=== PATIENT | female | born 1970 | race Caucasian/White ===

== ENCOUNTER 2018-10-04 00:09 | Observation (INO) | payer SELFPAY ==
[2018-10-04 00:46] LABS: #Basophils 0.1 thou/uL (0.0-0.2); #Eosinphils 0.1 thou/uL (0.0-0.7); #Lymphocytes 2.2 thou/uL (1.20-3.40); #Monocytes 0.7 thou/uL (0.11-0.59); %Basophils 1.2 % (0.0-1.0); %Eosinophils 1.3 % (0.0-10.0); %Monocytes 6.6 % (0.0-10.0); %Neutrophils 68.9 % (42.0-75.0); Hemoglobin 7.2 g/dL (12.0-16.0); Mean Corpuscular HGB CONC 34.5 g/dL (32.0-36.0); Mean Corpuscular Hemoglobin 29.1 pg (27.0-31.0); Mean Corpuscular Volume 84.5 fL (78.0-98.0); Mean Platelet Volume 5.6 fL (7.4-10.4); Platelet Count 244 thou/uL (130-400); RBC Distribution Width 13.2 % (11.5-14.5); Red Blood Cell (RBC) Count 2.47 mill/uL (4.20-5.40); White Blood Cell (WBC) Count 10.1 thou/uL (4.8-10.8)
[2018-10-04 01:11] LABS: ALT (SGPT) 25 U/L (8-55); AST (SGOT) 22 U/L (5-34); Albumin 3.7 g/dL (3.5-5.0); Alkaline Phosphatase 110 U/L (40-150); Anion Gap 12 mmol/L (10-20); BUN (Urea Nitrogen) 23 mg/dL (7.0-18.7); Bilirubin, Total 0.4 mg/dL (0.2-1.2); Calc. Creatinine Clearance 0 mL/min (70-130); Calcium 8.1 mg/dL (7.8-10.44); Carbon Dioxide 21 mmol/L (22-29); Chloride 109 mmol/L (98-107); Estimated GFR-MDRD 76; Globulin 2.5 g/dL (2.4-3.5); Glucose 137 mg/dL (70-105); Lipase 27 U/L (8-78); Protein, Total 6.2 g/dL (6.0-8.3); Sodium 138 mmol/L (136-145)
[2018-10-04] MEDS ORDERED: Pantoprazole 40 MG VIAL ONE (01:41)
[2018-10-04 01:46] LABS: Reticulocyte Count 5.9 % (0.5-1.5)
[2018-10-04 02:05] LABS: Iron 176 ug/dL (50-170); Iron Binding Capacity, Total 283 mcg/dL (265-497)
[2018-10-04 02:10] LABS: Bilirubin Negative (Negative); Blood, Urine Negative (Negative); Clarity CLEAR (Clear); Glucose, Urine (Dipstick) Negative (Negative); Leukocyte Small (Negative); Nitrite Negative (Negative); Protein, Urine (Dipstick) Negative (Neg-Trace); Specific Gravity, Urine 1.013 (1.002-1.036); Urobilinogen 0.2 mg/dL (0.2-1.0); pH, Urine 5.5 (5.0-9.0)
[2018-10-04 02:11] LABS: Pregnancy Test - Urine (BHCG) Negative (Negative); Pregu Control Background? CLEAR/WHITE (CLR/WHITE); Pregu Control Bar Appear? YES (CONTROL BAR); Specific Gravity 1.013 (1.002-1.036)
[2018-10-04 02:12] LABS: Bacteria/HPF None Seen HPF (None Seen); Hyaline Casts/LPF 0-3 HYALINE CAST LPF (0-3 Hyaline); Pathc Cast-AUWi Flag 0.43 (0-2.49); Squamous Epithelial 0-3 HPF (0-3)
[2018-10-04] MEDS ORDERED: diphenhydrAMINE 25 MG CAP PO PRN (02:46)
[2018-10-04] MEDS ORDERED: Acetaminophen 325 MG TAB PO PRN (02:47)
[2018-10-04] MEDS ORDERED: hydrALAZINE 20 MG/ML VIAL SLOW IVP PRN (02:49)
[2018-10-04] MEDS ORDERED: Ondansetron PF 4 MG/2 ML Vial SLOW IVP PRN (02:49)
[2018-10-04] MEDS ORDERED: HYDROcodone/Acetaminophen 5/325 mg Tablet PO PRN ×2 (02:52)
[2018-10-04] MEDS ORDERED: Furosemide 20 MG/2 ML VIAL SLOW IVP SCH (03:00)
[2018-10-04 03:08] VITALS: BMI 27.4
--- NOTE | 2018-10-04 03:47 | HP ---
PRIMARY CARE PHYSICIAN: Gloria Baez PA-C CHIEF COMPLAINT: Vomiting of blood and passing out. HISTORY OF PRESENT ILLNESS: The patient is a 48-year-old female with past medical history of Raynaud's phenomenon, hypertension, hypothyroidism and high cholesterol, who presented to the emergency department after having hematemesis x2 and passing out. The patient reported that she has Raynaud's phenomenon and she uses muscle relaxants, cyclobenzaprine along with Motrin 3 times per day. The patient has been doing this thing for a long time. The patient also reports now taking amlodipine and she is also taking levothyroxine, but she is unable to remember the dosages of her medication. The patient denies any abdominal pain or nausea at this point. The patient denies any chest pain or shortness of breath. PAST MEDICAL HISTORY: 1. Raynaud's phenomenon. 2. Hypothyroidism. 3. High cholesterol. PAST SURGICAL HISTORY: Denies any surgeries in the past. Family Hx: Mother heart problems HOME MEDICATIONS: 1. Levothyroxine. 2. Atorvastatin. 3. Flexeril. 4. Amlodipine. SOCIAL HISTORY: Denies any smoking, alcohol, or illicit drugs. Allergies: Bactrim REVIEW OF SYSTEMS: CONSTITUTIONAL: Negative for fever. EYES: Negative for visual changes. ENT: Negative for any problem with her ears, nose, or throat. CARDIOVASCULAR: Denies any chest pain. RESPIRATIONS: Denies any shortness of breath. GI: Reports hematemesis. Denies diarrhea. GENITOURINARY: Negative for dysuria. MUSCULOSKELETAL: Denies any lower extremity edema. NEUROLOGIC: Neurologically-induced passing out, otherwise denies any loss of consciousness. PSYCHIATRIC: Denies any mood disorders. PHYSICAL EXAMINATION: VITAL SIGNS: Blood pressure 132/66, heart rate 106, respiratory rate 16, O2 sat 100% on room air. GENERAL: Alert and oriented. HEAD: Atraumatic. EYES: Reactive to light. ENT: Normal examination of the mouth. NECK: No lymphadenopathy noted. RESPIRATIONS: Respiratory rate clear bilaterally. No rales, wheezes, or gallops. CARDIOVASCULAR: Regular rate and rhythm. No murmur, rubs, or gallops. ABDOMEN: Bowel sounds positive, nontender. No distention. EXTREMITIES: No edema noted. NEUROLOGIC: Alert and oriented. SKIN: No rashes noted, but appears to be pale. PSYCHIATRIC: Alert and oriented at this point. LABORATORY DATA: Labs reviewed. CBC significant for hemoglobin of 7.2. BNP nonsignificant. TSH 13.22. EKG reviewed, significant for QTc 507. Chest x-ray report is pending at this point. ASSESSMENT AND PLAN: 1. Upper gastrointestinal bleed, suspect gastric ulcer versus peptic ulcer disease given the use of NSAIDs. The patient's hemoglobin is 7.2 on admission, baseline unknown at this point. Given her symptoms, we will transfuse 2 units of blood, PRBC. Type and screen done in the ER. GI to be consulted in the morning. Two large-bore IV, Protonix IV b.i.d., remain n.p.o. except medication at this point , avoid NSAID at this point. The patient consulted to avoid NSAIDs. 2. Acute blood loss anemia, likely from upper gastrointestinal bleed. Plan as mentioned above. 3. Hypothyroidism, seems to be uncontrolled. Unable to adjust dosages at this point of levothyroxine as home dosage is not known. Once home dosage is known, then adjustment of medication will be done. 4. Raynaud's phenomenon, will be holding her amlodipine. 5. Muscular spasm. We will restart her home medication once dosage is known. 6. Hyperlipidemia. We will start atorvastatin once home dosage is known. 7. Deep venous thrombosis prophylaxis, SCD only due to acute gastrointestinal bleeding. 8. Code status, full code. 9. Medical power of trademark attorney, patient does not have anybody assigned but does have a sister, who can make decision for her if she is not able to. Job ID: [id number] [facility]
[2018-10-04 05:24] LABS: Free T4 (Free Thyroxine) 1.17 ng/dL (0.70-1.48)
[2018-10-04 07:43] LABS: #Lymphocytes 1.1 thou/uL (1.20-3.40); #Monocytes 0.4 thou/uL (0.11-0.59); #Neutrophils 6.9 thou/uL (1.40-6.50); %Basophils 0.4 % (0.0-1.0); %Eosinophils 0.4 % (0.0-10.0); %Lymphocytes 12.6 % (21.0-51.0); %Monocytes 4.3 % (0.0-10.0); %Neutrophils 82.3 % (42.0-75.0); Hemoglobin 9.3 g/dL (12.0-16.0); Mean Corpuscular HGB CONC 33.9 g/dL (32.0-36.0); Mean Corpuscular Hemoglobin 30.5 pg (27.0-31.0); Mean Corpuscular Volume 89.9 fL (78.0-98.0); Mean Platelet Volume 5.5 fL (7.4-10.4); Platelet Count 183 thou/uL (130-400); RBC Distribution Width 14.5 % (11.5-14.5); Red Blood Cell (RBC) Count 3.04 mill/uL (4.20-5.40); White Blood Cell (WBC) Count 8.3 thou/uL (4.8-10.8)
--- NOTE | 2018-10-04 07:44 | RAD ---
CHEST 1 VIEW: Date: 10/04/18 HISTORY: Dyspnea. COMPARISON: Radiograph dated 01/17/08. FINDINGS: There is some scarring in the right upper lobe. Lungs are otherwise clear. No pneumothorax. No effusi on. No acute osseous abnormality. Cardiac silhouette and mediastinal contours are similar. IMPRESSION: No acute intrathoracic abnormality. POS: [facility]
[2018-10-04 08:03] LABS: Anion Gap 12 mmol/L (10-20); BUN (Urea Nitrogen) 16 mg/dL (7.0-18.7); Calc. Creatinine Clearance 97 mL/min (70-130); Calcium 8.1 mg/dL (7.8-10.44); Carbon Dioxide 20 mmol/L (22-29); Chloride 110 mmol/L (98-107); Estimated GFR-MDRD 83; Glucose 126 mg/dL (70-105); Potassium 3.9 mmol/L (3.5-5.1); Sodium 138 mmol/L (136-145)
[2018-10-04 08:05] LABS: Troponin I Less than 0.010 ng/mL (< 0.028)
[2018-10-04] MEDS: Amlodipine 5 MG TAB PO SCH (09:00)
[2018-10-04] MEDS: Sodium Chloride 0.9% (PF) 10 ML VIAL FS SCH ×2 (09:00→20:50)
[2018-10-04] MEDS: Pantoprazole 40 MG VIAL IVP SCH ×2 (09:00→20:50)
[2018-10-04 11:05] LABS: Troponin I Less than 0.010 ng/mL (< 0.028)
[2018-10-04 13:12] LABS: #Eosinphils 0.1 thou/uL (0.0-0.7); #Lymphocytes 1.4 thou/uL (1.20-3.40); #Monocytes 0.4 thou/uL (0.11-0.59); #Neutrophils 6.9 thou/uL (1.40-6.50); %Basophils 0.1 % (0.0-1.0); %Eosinophils 0.6 % (0.0-10.0); %Lymphocytes 15.5 % (21.0-51.0); %Neutrophils 78.7 % (42.0-75.0); Hemoglobin 9.9 g/dL (12.0-16.0); Mean Corpuscular HGB CONC 34.9 g/dL (32.0-36.0); Mean Corpuscular Hemoglobin 30.9 pg (27.0-31.0); Mean Corpuscular Volume 88.4 fL (78.0-98.0); Mean Platelet Volume 5.6 fL (7.4-10.4); Platelet Count 199 thou/uL (130-400); RBC Distribution Width 14.4 % (11.5-14.5); White Blood Cell (WBC) Count 8.7 thou/uL (4.8-10.8)
--- NOTE | 2018-10-04 15:03 | PDOC.EVN ---
Event Note - Event Note Event Note: Pt seen and examined. chart reviewed no more hemetemesis. 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 Cont IVF,NPO for possible endoscopy today NSAID abuser.educated HD stable H/H stable post transfusion.Monitor
[2018-10-04 18:21] LABS: #Eosinphils 0.1 thou/uL (0.0-0.7); #Lymphocytes 1.6 thou/uL (1.20-3.40); #Monocytes 0.5 thou/uL (0.11-0.59); #Neutrophils 6.4 thou/uL (1.40-6.50); %Basophils 0.5 % (0.0-1.0); %Eosinophils 0.7 % (0.0-10.0); %Lymphocytes 18.7 % (21.0-51.0); Mean Corpuscular HGB CONC 35.1 g/dL (32.0-36.0); Mean Corpuscular Volume 88.2 fL (78.0-98.0); Mean Platelet Volume 5.4 fL (7.4-10.4); Platelet Count 201 thou/uL (130-400); RBC Distribution Width 14.5 % (11.5-14.5); Red Blood Cell (RBC) Count 2.91 mill/uL (4.20-5.40); White Blood Cell (WBC) Count 8.6 thou/uL (4.8-10.8)
--- NOTE | 2018-10-04 23:57 | CON ---
DATE OF CONSULTATION: 10/04/2018 CHIEF COMPLAINT: Vomited dark material and anemia. HISTORY OF PRESENT ILLNESS: Ms. Mosqueda is a 48-year-old woman, who vomited dark, possibly bloody material yesterday. She passed out with that occurrence and was helped down to the bed by her sister. She had no nausea or vomiting otherwise. No abdominal pain with that. She had a brown bowel movement yesterday. No bowel movements today. She may get some heartburn, maybe once per month. She has been taking Motrin 1 tablet three times a day for leg spasms. She has had no prior history of bleeding or ulcer. PAST MEDICAL HISTORY: Raynaud phenomenon, hyperlipidemia, and hypothyroidism. PAST SURGICAL HISTORY: Negative. FAMILY HISTORY: Negative for GI malignancies. SOCIAL HISTORY: No alcohol, tobacco or drugs. ALLERGIES: BACTRIM. MEDICATIONS: Prior to admission, 1. Levothyroxine. 2. Atorvastatin. 3. Flexeril. 4. Amlodipine. 5. Ibuprofen as stated above. REVIEW OF SYSTEMS: Negative x10 systems reviewed except as stated in the history of present illness. PHYSICAL EXAMINATION: VITAL SIGNS: Temperature 98.4, pulse 108, and blood pressure 126/69. GENERAL: She is in no acute distress. Alert and oriented x3. HEENT: Eyes have no scleral icterus. Oropharynx is clear without lesions. No cervical or supraclavicular lymphadenopathy. LUNGS: Clear to auscultation bilaterally. HEART: Tachycardic S1 and S2 without murmur. ABDOMEN: Soft, nontender, and nondistended. Bowel sounds are present. EXTREMITIES: No lower extremity edema. LABORATORY DATA: Creatinine 0.75. Iron 176, TIBC 283, and ferritin 47.5. AST 22, alk phos 110, ALT 25, albumin 3.7, and lipase 27. White blood cell count 8.7. Hemoglobin is 9.9 after 2 units transfusion. Prior to the transfusion, her hemoglobin was . Platelets 199. IMPRESSION: 1. Hematemesis. 2. Anemia of acute blood loss. She may have some component of more chronic blood loss as well given that she only had two episodes of vomiting dark material and she has no melena or evidence of blood in the stool. She does take NSAIDs regularly and is at risk for peptic ulcer. RECOMMENDATIONS: 1. Proton pump inhibitor. 2. EGD tomorrow morning. Job ID: [id number]
[2018-10-05 01:02] LABS: #Eosinphils 0.1 thou/uL (0.0-0.7); #Monocytes 0.6 thou/uL (0.11-0.59); #Neutrophils 5.2 thou/uL (1.40-6.50); %Basophils 0.4 % (0.0-1.0); %Eosinophils 0.9 % (0.0-10.0); %Lymphocytes 25.5 % (21.0-51.0); %Monocytes 7.9 % (0.0-10.0); %Neutrophils 65.4 % (42.0-75.0); Hemoglobin 8.8 g/dL (12.0-16.0); Mean Corpuscular HGB CONC 34.6 g/dL (32.0-36.0); Mean Corpuscular Hemoglobin 30.8 pg (27.0-31.0); Mean Platelet Volume 5.4 fL (7.4-10.4); Platelet Count 195 thou/uL (130-400); RBC Distribution Width 14.7 % (11.5-14.5); Red Blood Cell (RBC) Count 2.85 mill/uL (4.20-5.40)
[2018-10-05 05:32] LABS: #Basophils 0.1 thou/uL (0.0-0.2); #Eosinphils 0.1 thou/uL (0.0-0.7); #Lymphocytes 1.7 thou/uL (1.20-3.40); #Monocytes 0.5 thou/uL (0.11-0.59); %Eosinophils 1.5 % (0.0-10.0); %Lymphocytes 27.1 % (21.0-51.0); %Monocytes 7.1 % (0.0-10.0); %Neutrophils 63.4 % (42.0-75.0); Hemoglobin 8.4 g/dL (12.0-16.0); Mean Corpuscular HGB CONC 34.5 g/dL (32.0-36.0); Mean Corpuscular Hemoglobin 31.1 pg (27.0-31.0); Mean Corpuscular Volume 90.3 fL (78.0-98.0); Mean Platelet Volume 5.7 fL (7.4-10.4); Platelet Count 184 thou/uL (130-400); RBC Distribution Width 14.8 % (11.5-14.5); Red Blood Cell (RBC) Count 2.68 mill/uL (4.20-5.40); White Blood Cell (WBC) Count 6.3 thou/uL (4.8-10.8)
[2018-10-05] MEDS: Levothyroxine Sodium 50 MCG TAB PO SCH (05:48)
[2018-10-05] MEDS: Amlodipine 5 MG TAB PO SCH (08:47)
[2018-10-05] MEDS: Pantoprazole 40 MG VIAL IVP SCH (08:48)
[2018-10-05] MEDS: Sodium Chloride 0.9% (PF) 10 ML VIAL FS SCH ×2 (08:55→21:04)
--- NOTE | 2018-10-05 10:48 | PDOC.PN ---
- Subjective Encounter Start Date: 10/05/18 Encounter Start Time: 09:30 Subjective: no further bleeding/hematemesis or melena -: no nausea or abd pain, feels better -: is npo for EGD - Objective MAR Reviewed: Yes Vital Signs & Weight: Vital Signs (12 hours) Temp Pulse Resp BP BP Pulse Ox 10/05/18 08:47 96 119/69 10/05/18 07:05 97.6 F 96 16 119/69 97 10/05/18 03:42 98.7 F 97 16 124/75 98 10/05/18 00:00 98.3 F 98 17 127/77 97 Weight Admit Weight 145 lb 3.2 oz Weight 145 lb 3.2 oz I&O: 10/04/18 10/05/18 10/06/18 06:59 06:59 06:59 Intake Total 350 480 Output Total 425 900 Balance -75 -420 Result Diagrams: 10/05/18 04:58 10/04/18 07:13 Phys Exam - Physical Examination HEENT: PERRLA, moist MMs multiple caries Neck: no JVD, supple Respiratory: no wheezing, no rales Cardiovascular: RRR, no significant murmur Gastrointestinal: soft, non-tender, positive bowel sounds Musculoskeletal: pulses present, edema present Neurological: non-focal, moves all 4 limbs Psychiatric: normal affect, A&O x 3 Dx/Plan (1) GI bleed Code(s): K92.2 - GASTROINTESTINAL HEMORRHAGE, UNSPECIFIED Status: Acute Qualifiers: GI bleed type/associated pathology: unspecified gastrointestinal hemorrhage type Qualified Code(s): K92.2 - Gastrointestinal hemorrhage, unspecified (2) Acute blood loss anemia Code(s): D62 - ACUTE POSTHEMORRHAGIC ANEMIA Status: Acute (3) HTN (hypertension) Code(s): I10 - ESSENTIAL (PRIMARY) HYPERTENSION Status: Chronic Qualifiers: Hypertension type: essential hypertension Qualified Code(s): I10 - Essential (primary) hypertension (4) Dyslipidemia Code(s): E78.5 - HYPERLIPIDEMIA, UNSPECIFIED Status: Chronic (5) Hypothyroidism Code(s): E03.9 - HYPOTHYROIDISM, UNSPECIFIED Status: Chronic Qualifiers: Hypothyroidism type: unspecified Qualified Code(s): E03.9 - Hypothyroidism , unspecified - Plan is on protonix bid -: for EGD today -: recieved 1 u prbc yesterday -: Hb around 8g this am -: dc plan per GI advice and endoscopy findings * . Review of Systems - Medications/Allergies Allergies/Adverse Reactions: Allergies Allergy/AdvReac Type Severity Reaction Status Date / Time sulfamethoxazole Allergy Verified 10/04/18 03:00 [From Bactrim] trimethoprim [From Bactrim] Allergy Verified 10/04/18 03:00 Medications: Current Medications Acetaminophen (Tylenol) 650 mg PO Q6H PRN PRN Reason: Mild Pain (1-3)/FEVER Amlodipine Besylate (Norvasc) 2.5 mg PO DAILY [facility] Last Admin: 10/05/18 08:47 Dose: 2.5 mg Diphenhydramine HCl (Benadryl) 25 mg PO Q4H PRN PRN Reason: TRANSFUSION REACTION Levothyroxine Sodium (Synthroid) 50 mcg PO 0600 [facility] Last Admin: 10/05/18 05:48 Dose: Not Given Ondansetron HCl (Zofran) 4 mg SLOW IVP Q4H PRN PRN Reason: Nausea/Vomiting Pantoprazole Sodium (Protonix) 40 mg IVP Q12HR [facility] Last Admin: 10/05/18 08:48 Dose: 40 mg Sodium Chloride (Flush - Normal Saline) 10 ml IVF Q12HR [facility] Last Admin: 10/05/18 08:48 Dose: 10 ml Sodium Chloride (Flush - Normal Saline) 10 ml IVF PRN PRN PRN Reason: Saline Flush Sodium Chloride (Normal Saline Pf) 10 ml FS Q12HR [facility] Last Admin: 10/05/18 08:55 Dose: Not Given
[2018-10-05 12:23] LABS: #Basophils 0.1 thou/uL (0.0-0.2); #Eosinphils 0.1 thou/uL (0.0-0.7); #Lymphocytes 1.6 thou/uL (1.20-3.40); #Monocytes 0.4 thou/uL (0.11-0.59); %Basophils 1.2 % (0.0-1.0); %Eosinophils 1.2 % (0.0-10.0); %Lymphocytes 25.9 % (21.0-51.0); %Monocytes 6.3 % (0.0-10.0); %Neutrophils 65.3 % (42.0-75.0); Hemoglobin 9.6 g/dL (12.0-16.0); Mean Corpuscular HGB CONC 33.9 g/dL (32.0-36.0); Mean Corpuscular Hemoglobin 30.3 pg (27.0-31.0); Mean Corpuscular Volume 89.4 fL (78.0-98.0); Mean Platelet Volume 5.5 fL (7.4-10.4); Platelet Count 207 thou/uL (130-400); RBC Distribution Width 14.9 % (11.5-14.5); Red Blood Cell (RBC) Count 3.16 mill/uL (4.20-5.40)
[2018-10-05] MEDS ORDERED: PROPOFOL 200 MG/20 ML VIAL ONE (16:02)
[2018-10-05] MEDS ORDERED: Lidocaine 1% PF 5 ML VIAL ONE (16:02)
--- NOTE | 2018-10-05 16:58 | OP ---
DATE OF PROCEDURE: 10/05/2018 PROCEDURE PERFORMED: Esophagogastroduodenoscopy with biopsy. PREOPERATIVE DIAGNOSES: 1. Anemia of acute blood loss. 2. Gastrointestinal bleed. DESCRIPTION OF PROCEDURE: Informed consent was obtained from the patient. She was sedated with total intravenous anesthesia. The bite block was placed and the endoscope was advanced to the first portion of the duodenum without difficulty. Retroflexion was performed in the stomach. The esophagus had a mild stricture in the distal esophagus at the GE junction with mild grade A erosive esophagitis. There was a small 1 cm hiatal hernia present. The stomach was normal including retroflexed views. Biopsies were obtained from the stomach to rule out H pylori. The bulb of the duodenum was edematous with erosions and a 1 cm shallow white-based ulcer on the lateral wall at the junction of the first and second portions of the duodenum. This creates a stricture between the 1st and 2nd portions of the duodenum, through which the endoscope could not be passed. As there was an acute ulcer involving this stricture, it was not balloon dilated today. Biopsies were obtained from the 1st portion of the duodenum. IMPRESSION: 1. A 1 cm white-based ulcer in the duodenum on the lateral wall at the junction between the 1st and 2nd portions of the duodenum. 2. Stricture at the junction between the 1st and 2nd portions of the duodenum, through which the endoscope could not be passed. 3. Erosive duodenitis in the bulb of the duodenum. 4. Mild distal esophageal stricture with grade A erosive esophagitis. 5. Small 1 cm hiatal hernia. 6. Gastric biopsies taken to rule out Helicobacter pylori. RECOMMENDATIONS: 1. Await histopathology. 2. Proton pump inhibitor can be changed to oral dosing. 3. Advance diet to low-residue diet. 4. Consider repeat endoscopy in 4-6 weeks after she has been on proton pump inhibitor and iron supplementation to evaluate healing of the ulcer and determine if dilation of the duodenal or esophageal stricture becomes necessary after proton pump inhibitor treatment. 5. I will sign off for now. Please call if GI can be of assistance. Job ID: [id number]
[2018-10-05 17:53] LABS: #Basophils 0.1 thou/uL (0.0-0.2); #Eosinphils 0.1 thou/uL (0.0-0.7); #Lymphocytes 1.6 thou/uL (1.20-3.40); #Monocytes 0.4 thou/uL (0.11-0.59); #Neutrophils 4.6 thou/uL (1.40-6.50); %Eosinophils 0.9 % (0.0-10.0); %Lymphocytes 23.5 % (21.0-51.0); %Neutrophils 68.6 % (42.0-75.0); Hemoglobin 8.7 g/dL (12.0-16.0); Mean Corpuscular HGB CONC 34.9 g/dL (32.0-36.0); Mean Corpuscular Hemoglobin 30.9 pg (27.0-31.0); Mean Corpuscular Volume 88.6 fL (78.0-98.0); Mean Platelet Volume 5.3 fL (7.4-10.4); Platelet Count 200 thou/uL (130-400); RBC Distribution Width 14.6 % (11.5-14.5); White Blood Cell (WBC) Count 6.8 thou/uL (4.8-10.8)
[2018-10-05] MEDS ORDERED: Sodium Chloride 0.9% 500 ML IVPB ONE (23:00)
[2018-10-06 00:38] LABS: #Lymphocytes 1.3 thou/uL (1.20-3.40); #Monocytes 0.6 thou/uL (0.11-0.59); #Neutrophils 8.1 thou/uL (1.40-6.50); %Basophils 0.3 % (0.0-1.0); %Eosinophils 0.3 % (0.0-10.0); %Lymphocytes 13.1 % (21.0-51.0); %Monocytes 5.8 % (0.0-10.0); %Neutrophils 80.5 % (42.0-75.0); Mean Corpuscular HGB CONC 34.5 g/dL (32.0-36.0); Mean Corpuscular Hemoglobin 30.5 pg (27.0-31.0); Mean Corpuscular Volume 88.5 fL (78.0-98.0); Mean Platelet Volume 5.1 fL (7.4-10.4); Platelet Count 189 thou/uL (130-400); RBC Distribution Width 15.2 % (11.5-14.5); Red Blood Cell (RBC) Count 2.93 mill/uL (4.20-5.40); White Blood Cell (WBC) Count 10.1 thou/uL (4.8-10.8)
[2018-10-06] MEDS: Levothyroxine Sodium 50 MCG TAB PO SCH (05:26)
[2018-10-06] MEDS: Amlodipine 5 MG TAB PO SCH (09:05)
[2018-10-06 11:26] VITALS: BP 117/60; TEMP 98.7
--- NOTE | 2018-10-06 12:06 | PDOC.PN ---
- Subjective Encounter Start Date: 10/06/18 Encounter Start Time: 09:00 Subjective: no bleeding or abd pain or nausea -: feels good, is tolerating oral diet and ambulating - Objective MAR Reviewed: Yes Vital Signs & Weight: Vital Signs (12 hours) Temp Pulse Resp BP BP Pulse Ox 10/06/18 11:01 98.7 F 103 H 15 117/60 96 10/06/18 09:05 100 10/06/18 07:02 98.0 F 100 15 106/59 L 94 L 10/06/18 04:36 98.2 F 106 H 13 115/57 L 10/06/18 03:11 109 H 21 H 103/55 L 95 Weight Admit Weight 145 lb 3.2 oz Weight 139 lb 9.6 oz I&O: 10/05/18 10/06/18 10/07/18 06:59 06:59 06:59 Intake Total 480 1645 Output Total 900 2000 Balance -420 -355 Result Diagrams: 10/06/18 00:33 10/04/18 07:13 Phys Exam - Physical Examination HEENT: PERRLA, moist MMs Neck: no JVD, supple Respiratory: no wheezing, no rales Cardiovascular: RRR, no significant murmur Gastrointestinal: soft, non-tender, no distention, positive bowel sounds Musculoskeletal: no edema, pulses present Neurological: non-focal, moves all 4 limbs Psychiatric: normal affect, A&O x 3 Dx/Plan (1) GI bleed Code(s): K92.2 - GASTROINTESTINAL HEMORRHAGE, UNSPECIFIED Status: Acute Qualifiers: GI bleed type/associated pathology: unspecified gastrointestinal hemorrhage type Qualified Code(s): K92.2 - Gastrointestinal hemorrhage, unspecified (2) Acute blood loss anemia Code(s): D62 - ACUTE POSTHEMORRHAGIC ANEMIA Status: Acute (3) HTN (hypertension) Code(s): I10 - ESSENTIAL (PRIMARY) HYPERTENSION Status: Chronic Qualifiers: Hypertension type: essential hypertension Qualified Code(s): I10 - Essential (primary) hypertension (4) Dyslipidemia Code(s): E78.5 - HYPERLIPIDEMIA, UNSPECIFIED Status: Chronic (5) Hypothyroidism Code(s): E03.9 - HYPOTHYROIDISM, UNSPECIFIED Status: Chronic Qualifiers: Hypothyroidism type: unspecified Qualified Code(s): E03.9 - Hypothyroidism , unspecified - Plan h/h is stable -: hemostable -: may dc home on omeprazole and slow iron if ok with * . Review of Systems - Medications/Allergies Allergies/Adverse Reactions: Allergies Allergy/AdvReac Type Severity Reaction Status Date / Time sulfamethoxazole Allergy Verified 10/04/18 03:00 [From Bactrim] trimethoprim [From Bactrim] Allergy Verified 10/04/18 03:00 Medications: Current Medications Acetaminophen (Tylenol) 650 mg PO Q6H PRN PRN Reason: Mild Pain (1-3)/FEVER Amlodipine Besylate (Norvasc) 2.5 mg PO DAILY [facility] Last Admin: 10/06/18 09:05 Dose: 2.5 mg Diphenhydramine HCl (Benadryl) 25 mg PO Q4H PRN PRN Reason: TRANSFUSION REACTION Levothyroxine Sodium (Synthroid) 50 mcg PO 0600 [facility] Last Admin: 10/06/18 05:26 Dose: 50 mcg Ondansetron HCl (Zofran) 4 mg SLOW IVP Q4H PRN PRN Reason: Nausea/Vomiting Pantoprazole Sodium (Protonix) 40 mg PO BID [facility] Last Admin: 10/06/18 09:06 Dose: 40 mg Sodium Chloride (Flush - Normal Saline) 10 ml IVF Q12HR [facility] Last Admin: 10/06/18 09:06 Dose: 10 ml Sodium Chloride (Flush - Normal Saline) 10 ml IVF PRN PRN PRN Reason: Saline Flush Last Admin: 10/05/18 23:09 Dose: 10 ml
--- NOTE | 2018-10-06 19:33 | DIS ---
DATE OF ADMISSION: 10/04/2018 DATE OF DISCHARGE: 10/06/2018 DISCHARGE DISPOSITION: To home. PRIMARY DISCHARGE DIAGNOSES: Gastrointestinal bleed with acute blood loss anemia, duodenal ulcer, duodenal stricture status post dilatation, and acute blood loss anemia. SECONDARY DISCHARGE DIAGNOSES: Hypertension, dyslipidemia, and hypothyroidism. PROCEDURES DONE DURING HOSPITALIZATION: The patient had upper endoscopy done by Dr. Andrea Jett on 10/05/2018. This showed 1 cm white based ulcer in the duodenum on the lateral wall at the junction between first and second portion of duodenum. There was also stricture at the junction between first and second portions of duodenum through which the endoscope could not be passed. There was erosive duodenitis in the bulb of the duodenum. Mild distal esophageal stricture with grade A erosive esophagitis was seen. Gastric biopsies were taken. Discharge hemoglobin and hematocrit were 9 and 26, platelet count 189. Her hemoglobin and hematocrit had dropped down to 7 and 20 on the 7th. The retic count was 5.9. BUN and creatinine of 16 and 0.7. On the day of discharge, troponin was negative x3. BNP less than 10. TSH was 13.22, free T4 of 1.1, and free T3 of 2.89. DISCHARGE MEDICATIONS: 1. Omeprazole 20 mg p.o. twice daily. 2. Levothyroxine 50 mcg p.o. daily. 3. Ferrous sulfate once daily. 4. Flexeril p.r.n. 5. Atorvastatin 20 mg p.o. daily. 6. Norvasc 2.5 mg p.o. daily. ALLERGIES: SULFA. INPATIENT CONSULT: Dr. Andrea Jett for Gastroenterology. DISCHARGE PLAN: The patient to follow up with Dr. Andrea Jett in 4 to 6 weeks for likely repeat endoscopy. She also needs to follow up with her primary care physician in 1 week to follow up on the biopsy results, especially if she is a candidate for H. pylori treatment. BRIEF COURSE DURING HOSPITALIZATION: The patient initially came to ER with complaints of vomiting blood and passing out. The patient's hemoglobin was 7 g on arrival and was given 1 unit of packed cell transfusion. The patient had GI consultation with Dr. Andrea Jett and had upper endoscopy done. The findings are mentioned above. The patient is tolerating oral solid diet. She needs follow up with Dr. Andrea Jett, for likely repeat endoscopy in 4 to 6 weeks to see for healing of her duodenal ulcer and the stricture that she has. The patient also has biopsies taken from her stomach and needs to follow up with her primary care physician for the results of the same. She needs to get treated for H. pylori if she is positive for the same on the biopsies. She is hemodynamically stable and will be shortly discharged home if cleared by Dr. Andrea Jett. Please see a [id number] documentation for [facility] day [facility] Job ID: [id number]
--- NOTE | 2018-10-06 19:51 | EKG ---
Test Reason : Blood Pressure : / mmHG Vent. Rate : 106 BPM Atrial Rate : 106 BPM P-R Int : 112 ms QRS Dur : 090 ms QT Int : 382 ms P-R-T Axes : 034 060 -53 degrees QTc Int : 507 ms Sinus tachycardia RSR' or QR pattern in V1 suggests right ventricular conduction delay Possible Inferior infarct , age undetermined Abnormal ECG Confirmed by CARLOS JUDD DO ([id number]), supervising editor news reel LUCY ALAN ([id number]) on 10/06/2018 7:51:00 PM Referred By: Confirmed By:CARLOS JUDD DO
== END 2018-10-06 14:52 | disposition home or self-care (01) ==
LOC: ERS 00:09 → 2SW 01:44
PROVIDERS: ADMIT Family Medicine; ATTEND Internal Medicine Gastroenterology
PROC: 0DB98ZX Excision of Duodenum, Via Natural or Artificial Opening Endoscopic, Diagnostic (ICD-10-PCS; principal; 2018-10-06)
PROC: 0DB48ZX Excision of Esophagogastric Junction, Via Natural or Artificial Opening Endoscopic, Diagnostic (ICD-10-PCS; 2018-10-06)
DX: K29.81 Duodenitis with bleeding (principal); K31.9 Disease of stomach and duodenum, unspecified; K22.2 Esophageal obstruction; K20.8 Other esophagitis; K44.9 Diaphragmatic hernia without obstruction or gangrene; K31.5 Obstruction of duodenum; K26.4 Chronic or unspecified duodenal ulcer with hemorrhage; D62 Acute posthemorrhagic anemia; I73.00 Raynaud's syndrome without gangrene; I10 Essential (primary) hypertension; E03.9 Hypothyroidism, unspecified; E78.00 Pure hypercholesterolemia, unspecified; Z88.2 Allergy status to sulfonamides; Z79.899 Other long term (current) drug therapy
CPT/HCPCS: 36415; 36416; 36430; 71045; 80053; 81003; 81015; 81025; 82728; 83540; 83550; 83690; 83735; 83880; 84439; 84443; 84481; 84484; 85025; 85046; 85379; 86850; 86900; 86901; 88305; 88312; 93005; 93010; 96361; 96374; 96376; C9113; G0378; J1940; J2001; J2704; J7050; P9016